=== PATIENT | male | born 1945 | race Caucasian/White ===

== ENCOUNTER 2018-05-26 15:00 | Inpatient (IN) | payer OTHER ==
[~2018-05-26] VITALS: Ht 165.1 cm; Wt 47.6 kg
[2018-06-04] MEDS ORDERED: INTESTINEX680 M1 PO (08:51)
[2018-06-04] MEDS ORDERED: OMEPRAZOLE20 MG PO (08:51)
[2018-06-04] MEDS ORDERED: TYLENOL ARTHRI650 MG PO (08:51)
== END 2018-06-04 09:37 | disposition home or self-care (01) | DRG 331 ==
LOC: SURG 06-01 05:31 → O/R 06-01 05:31 → SURH 06-01 07:00 → MEDI 06-01 20:12 → SURG 06-01 20:12
PROVIDERS: Surgery
PROC: 07TC4ZZ Resection of Pelvis Lymphatic, Percutaneous Endoscopic Approach (ICD-10-PCS; 2018-06-01)
PROC: 4A12X4Z Monitoring of Cardiac Electrical Activity, External Approach (ICD-10-PCS; 2018-06-01)
PROC: 0DTF4ZZ Resection of Right Large Intestine, Percutaneous Endoscopic Approach (ICD-10-PCS; principal; 2018-06-01 07:00)
DX: C18.0 Malignant neoplasm of cecum (principal); R59.0 Localized enlarged lymph nodes; I25.10 Atherosclerotic heart disease of native coronary artery without angina pectoris; I10 Essential (primary) hypertension; Z95.1 Presence of aortocoronary bypass graft; D64.89 Other specified anemias